=== PATIENT | male | born 1960 | race Caucasian/White ===

== ENCOUNTER 2017-08-27 08:44 | Inpatient (IN) ==
[2017-08-27] MEDS ORDERED: Ondansetron 4 MG/2 ML VIAL IVP ONE (08:54)
[2017-08-27] MEDS ORDERED: Aspirin 81 MG TAB.CHEW PO ONE (08:54)
[2017-08-27] MEDS ORDERED: *HR* Ticagrelor 90 MG TABLET PO ONE (08:54)
[2017-08-27] MEDS ORDERED: 0.9 % Sodium Chloride 1,000 ML IVC ONE (08:54)
[2017-08-27] MEDS ORDERED: Nitroglycerin 0.4 MG TAB.SUBL SL ONE (08:55)
[2017-08-27] MEDS ORDERED: Aspirin 81 MG TAB.CHEW ONE (08:55)
--- NOTE | 2017-08-27 09:07 | Emergency Department Note ---
Disposition Clinical Impression: NSTEMI (non-ST elevated myocardial infarction) Disposition: Admitted As Inpatient Chest Pain HPI - General Stated Complaint: CP Time Seen by Provider: 08/27/17 08:54 Source: patient Mode of arrival: private vehicle Limitations: no limitations Vital Signs Reviewed: Yes Nursing Notes Reviewed: Yes - History of Present Illness Pt complaint: chest pain Onset (ago): Just [facility] Duration: constant Onset: during rest Pain Location: left chest, other (left neck) Severity: severe Severity scale (1-10): 9 Quality: sharp Pain Radiation: neck Improves with: nothing Worsens with: nothing Associated symptoms: Reports: sense of impending doom. Denies: nausea, vomiting , diaphoresis, dyspnea, syncope, fever, cough Treatments prior to arrival chest pain: none - Related Data Home Medications Medication Instructions Recorded Confirmed Meloxicam [Mobic] 15 mg PO DAILY 08/27/17 08/27/17 Allergies Allergy/AdvReac Type Severity Reaction Status Date / Time No Known Allergies Allergy Verified 08/27/17 10:19 All systems ED: reviewed and negative except as stated. Review of Systems: As Per HPI Constitutional: Denies: fever, chills, weakness Eyes: Denies: vision change ENT ED: Denies: congestion Cardiovascular: Reports: as per HPI, chest pain. Denies: palpitations, dyspnea on exertion, orthopnea, edema, syncope Respiratory: Denies: cough, dyspnea, wheezes, hemoptysis, stridor, sputum production Gastrointestinal: Denies: abdominal pain, nausea, vomiting, diarrhea Musculoskeletal: Denies: back pain, joint swelling Neurological: Denies: weakness, numbness, paresthesias Hematological/Lymphatic: Denies: easy bleeding, easy bruising Chest Pain PMH - Past Medical History Medical history: Reports: other Psychiatric history: Reports: no psych history - Social History Smoking Status: Current every day smoker Alcohol use: Reports: none Drug use: Reports: none Physical Exam - General Limitations: no limitations General appearance: alert, anxious, in distress - Head Head exam: atraumatic, normocephalic, normal inspection - Eye Eye exam: Present: normal appearance, PERRL. Absent: scleral icterus, conjunctival injection, periorbital swelling - ENT ENT exam: mucous membranes moist - Neck Neck exam: Present: normal inspection, full ROM, trachea midline. Absent: tenderness, meningismus - Chest Chest inspection: Present: normal inspection, symmetric chest wall rise. Absent : tenderness - Respiratory Respiratory exam: Present: normal lung sounds bilaterally. Absent: respiratory distress, wheezes, stridor, accessory muscle use - Cardiovascular Cardiovascular exam: Present: regular rate, normal rhythm, normal heart sounds - Abdominal Exam Abdominal exam: Present: soft, Non-Tender. Absent: distention, guarding, rebound, mass - Extremities Exam Extremities exam: Present: normal inspection, full ROM, normal capillary refill. Absent: pedal edema - Back Exam Back exam: Present: normal inspection - Neurological Exam Neurological exam: Present: alert, oriented X3, CN II-XII intact, normal gait - Psychiatric Psychiatric exam: Present: normal affect, normal mood, anxious - Skin Skin exam: Present: warm, dry, intact, normal color Course Course Narrative: Patient presents from home for evaluation of chest pain that began just prior to arrival. He states, "I thought maybe he had just ate something bad, but the pain got worse in my neck, so I thought I should come in to get it checked out. " He denies known history of coronary artery disease, acute OR and has never had a cardiac cath or stress test. His pain began while at rest. He denies any palliative or provocative factors. He denies nausea, vomiting, dizziness, syncope, shortness of breath. Chest pain order set has been entered. A repeat EKG was done while Dr. Paul was examining the patient. Concern is for possible STEMI. Meds have been ordered and the interventionalist has been paged. A copy of the EKG was faxed to the Fill Technician for the interventionalist to review. - Reevaluation(s) Reevaluation #1: Repeat ECG #5 shows no STEMI. NTG drip ordered. CTA ordered. Patient still having pain. Fentanyl ordered. BP improving. Sats still normal. Time: 09:39 Reevaluation #2: Repeat TNI is 0.07. This was one hour after first. (Patient's pain began 30 min [facility]) Dr. Paul spoke with Dr. Carranza again. The interventionalist will take the patient to the r&d lab technician now. Time: 11:00 Reevaluation #3: Patient was about to be transferred to the Fill Technician under the care of Dr. Carranza , when his rate increased to the 160s. Dr. Carranza had the nurse stop the nitroglycerin and he ordered Lopressor. Patient's chest pain returned and is now back to a 10. Once the patient's heart rate stabilizes, he will be taken to the r&d lab technician. Dr. Paul was at bedside as well. Time: 11:24 - Consultations Consultation #1: Interventionalist, was paged. Dr. Carranza called back and spoke with Dr. Paul. They have both reviewed the EKG and feel that he does not currently meet criteria for a STEMI. Dr. Paul is concerned as the patient does appear to be developing reciprocal changes on subsequent EKGs, however, Dr. Carranza does not feel that this patient is having a STEMI. Time: 09:00 Vital Signs Temperature 97.5 F L 08/27/17 08:51 Pulse Rate 89 08/27/17 08:51 Respiratory Rate 24 08/27/17 08:51 Blood Pressure 185/128 08/27/17 08:51 O2 Sat by Pulse Oximetry 99 08/27/17 08:51 Temperature 97.5 F L 08/27/17 08:51 Pulse Rate 83 08/27/17 10:38 Respiratory Rate 10 08/27/17 10:38 Blood Pressure 144/91 08/27/17 10:38 O2 Sat by Pulse Oximetry 98 08/27/17 10:38 Oxygen Delivery Oxygen Delivery Room Air Chest Pain - Medical Records Medical records reviewed: Yes I reviewed the patient's medical records. - Lab Data Lab results reviewed: Yes I reviewed the patient's lab results. Lab results narrative: Laboratory Last Values WBC 13.6 K/mcL (4.3-11.1) H 08/27/17 08:59 RBC 5.49 M/mcL (4.19-5.50) 08/27/17 08:59 Hgb 16.5 g/dL (12.9-16.9) 08/27/17 08:59 Hct 49.3 % (37.5-50.1) 08/27/17 08:59 MCV 89.8 fL (83.0-100.0) 08/27/17 08:59 MCH 30.1 pg (28.0-33.3) 08/27/17 08:59 MCHC 33.5 g/dL (31.6-35.5) 08/27/17 08:59 RDW 12.8 % (11.5-14.5) 08/27/17 08:59 Plt Count 274 K/mcL (140-400) 08/27/17 08:59 MPV 11.0 fL (9.4-12.4) 08/27/17 08:59 Immature Gran % 0.4 % (0-4) 08/27/17 08:59 Seg Neutrophils % 47.1 % 08/27/17 08:59 Lymphocytes % 38.9 % 08/27/17 08:59 Monocytes % 7.5 % 08/27/17 08:59 Eosinophils % 5.3 % 08/27/17 08:59 Basophils % 0.8 % 08/27/17 08:59 Neutrophils # 6.4 K/mcL (1.6-8.9) 08/27/17 08:59 Lymphocytes # 5.3 K/mcL (0.6-4.6) H 08/27/17 08:59 Monocytes # 1.0 K/mcL (0.0-1.3) 08/27/17 08:59 Eosinophils # 0.7 K/mcL (0.0-0.6) H 08/27/17 08:59 Basophils # 0.1 K/mcL (0.0-0.2) 08/27/17 08:59 PT 11.9 Seconds (9.4-12.1) 08/27/17 08:59 INR 1.1 08/27/17 08:59 APTT 29.5 Seconds (26.0-36.0) 08/27/17 08:59 Sodium 139 mEq/L (136-145) 08/27/17 08:59 Potassium 3.9 mEq/L (3.5-4.5) 08/27/17 08:59 Chloride 104 mEq/L (98-109) 08/27/17 08:59 Carbon Dioxide 27 mEq/L (19-29) 08/27/17 08:59 BUN 17 mg/dL (8-26) 08/27/17 08:59 Creatinine 0.92 mg/dL (0.72-1.25) 08/27/17 08:59 Est GFR ( Amer) > 60 (> 60) 08/27/17 08:59 Est GFR (Non-Af Amer) > 60 (> 60) 08/27/17 08:59 BUN/Creatinine Ratio 18 (6-26) 08/27/17 08:59 Glucose 103 mg/dL (70-99) H 08/27/17 08:59 Calculated Osmolality 290 (280-300) 08/27/17 08:59 Calcium 9.7 mg/dL (8.6-10.8) 08/27/17 08:59 Magnesium 2.2 mg/dL (1.6-2.6) 08/27/17 08:59 Total Bilirubin 0.5 mg/dL (0.2-1.2) 08/27/17 08:59 AST 18 Units/L (5-34) 08/27/17 08:59 ALT 44 Units/L (0-55) 08/27/17 08:59 Alkaline Phosphatase 89 Units/L (38-126) 08/27/17 08:59 Troponin I 0.07 ng/mL (0-0.03) H* 08/27/17 09:49 Serum Total Protein 7.3 g/dL (6.0-8.3) 08/27/17 08:59 Albumin 3.7 g/dL (3.5-5.0) 08/27/17 08:59 Globulin 3.6 g/dL (2.4-3.5) H 08/27/17 08:59 Albumin/Globulin Ratio 1.0 (1.1-2.2) L 08/27/17 08:59 Result diagrams: 08/27/17 08:59 08/27/17 08:59 Lab Results 08/27/17 08/27/17 08/27/17 Range/Units 08:59 08:59 08:59 WBC 13.6 H (4.3-11.1) K/mcL RBC 5.49 (4.19-5.50) M/mcL Hgb 16.5 (12.9-16.9) g/dL Hct 49.3 (37.5-50.1) % MCV 89.8 (83.0-100.0) fL MCH 30.1 (28.0-33.3) pg MCHC 33.5 (31.6-35.5) g/dL RDW 12.8 (11.5-14.5) % Plt Count 274 (140-400) K/mcL MPV 11.0 (9.4-12.4) fL Immature Gran % 0.4 (0-4) % Seg Neutrophils % 47.1 % Lymphocytes % 38.9 % Monocytes % 7.5 % Eosinophils % 5.3 % Basophils % 0.8 % Neutrophils # 6.4 (1.6-8.9) K/mcL Lymphocytes # 5.3 H (0.6-4.6) K/mcL Monocytes # 1.0 (0.0-1.3) K/mcL Eosinophils # 0.7 H (0.0-0.6) K/mcL Basophils # 0.1 (0.0-0.2) K/mcL PT 11.9 (9.4-12.1) Seconds INR 1.1 APTT 29.5 (26.0-36.0) Seconds Sodium 139 (136-145) mEq/L Potassium 3.9 (3.5-4.5) mEq/L Chloride 104 (98-109) mEq/L Carbon Dioxide 27 (19-29) mEq/L BUN 17 (8-26) mg/dL Creatinine 0.92 (0.72-1.25) mg/dL Est GFR ( Amer) > 60 (> 60) Est GFR (Non-Af Amer) > 60 (> 60) BUN/Creatinine Ratio 18 (6-26) Glucose 103 H (70-99) mg/dL Calculated Osmolality 290 (280-300) Calcium 9.7 (8.6-10.8) mg/dL Magnesium 2.2 (1.6-2.6) mg/dL Total Bilirubin 0.5 (0.2-1.2) mg/dL AST 18 (5-34) Units/L ALT 44 (0-55) Units/L Alkaline Phosphatase 89 (38-126) Units/L Troponin I (0-0.03) ng/mL Serum Total Protein 7.3 (6.0-8.3) g/dL Albumin 3.7 (3.5-5.0) g/dL Globulin 3.6 H (2.4-3.5) g/dL Albumin/Globulin Ratio 1.0 L (1.1-2.2) 08/27/17 08/27/17 Range/Units 08:59 09:49 WBC (4.3-11.1) K/mcL RBC (4.19-5.50) M/mcL Hgb (12.9-16.9) g/dL Hct (37.5-50.1) % MCV (83.0-100.0) fL MCH (28.0-33.3) pg MCHC (31.6-35.5) g/dL RDW (11.5-14.5) % Plt Count (140-400) K/mcL MPV (9.4-12.4) fL Immature Gran % (0-4) % Seg Neutrophils % % Lymphocytes % % Monocytes % % Eosinophils % % Basophils % % Neutrophils # (1.6-8.9) K/mcL Lymphocytes # (0.6-4.6) K/mcL Monocytes # (0.0-1.3) K/mcL Eosinophils # (0.0-0.6) K/mcL Basophils # (0.0-0.2) K/mcL PT (9.4-12.1) Seconds INR APTT (26.0-36.0) Seconds Sodium (136-145) mEq/L Potassium (3.5-4.5) mEq/L Chloride (98-109) mEq/L Carbon Dioxide (19-29) mEq/L BUN (8-26) mg/dL Creatinine (0.72-1.25) mg/dL Est GFR ( Amer) (> 60) Est GFR (Non-Af Amer) (> 60) BUN/Creatinine Ratio (6-26) Glucose (70-99) mg/dL Calculated Osmolality (280-300) Calcium (8.6-10.8) mg/dL Magnesium (1.6-2.6) mg/dL Total Bilirubin (0.2-1.2) mg/dL AST (5-34) Units/L ALT (0-55) Units/L Alkaline Phosphatase (38-126) Units/L Troponin I 0.02 0.07 H* (0-0.03) ng/mL Serum Total Protein (6.0-8.3) g/dL Albumin (3.5-5.0) g/dL Globulin (2.4-3.5) g/dL Albumin/Globulin Ratio (1.1-2.2) - Radiology Data Radiology results reviewed: Yes I reviewed the patient's radiology results. Chest X-Ray 08/27/17 08:55 IMPRESSION: No acute process. D/ / Mati Espinoza MD / Mati Espinoza MD Interpreting Provider: Mati Espinoza MD Chest CTA 08/27/17 09:38 IMPRESSION: No evidence of pulmonary embolism or acute pulmonary abnormality. D/ / Fredis Salguero MD / Fredis Salguero MD Interpreting Provider: Fredis Salguero MD - EKG Data EKG attestation: Yes I reviewed and interpreted this EKG. EKG shows normal: sinus rhythm Rate: normal Rhythm: NSR ST segment elevation in: v1, v2, v3 QRS morphology: J-point elevation (I do not) When compared to previous EKG there are: no significant changes Interpretation: unchanged when compared to prior tracing (date) Heart Score - Score History: Highly Suspicious EKG: Non Specific repolarisation Disturbance Age: 45-65 Risk Factors: Equal/Greater than 3 risk factor or history of atherosclerotic disease Troponin: 1-3x normal limit HEART Score Total: 7 Critical Care Time Critical Care Time: Yes Total Critical Care Time: 35 (Exclusive of separately billable procedures) Attestation: Patient arrived with an acute onset of chest pain. He appeared to be in significant pain and distress. He was hypertensive. Initial EKG shows [address] elevation in V1 and V2. Presentation was concerning for STEMI. Serial EKGs were done and patient was started on a nitroglycerin and heparin drip. He was also given aspirin, Plavix and Brilinta. He received fentanyl, fluids and Zofran as well. Patient's initial troponin is 0.02 and repeat troponin drawn one hour post arrival is elevated at 0.07. Patient will be going to the Fill Technician as he is having continued pain and has an elevated troponin
[2017-08-27 09:12] LABS: Basophils # 0.1 K/mcL (0.0-0.2); Basophils % 0.8 %; Eosinophils # 0.7 K/mcL (0.0-0.6); Eosinophils % 5.3 %; Hematocrit 49.3 % (37.5-50.1); Hemoglobin 16.5 g/dL (12.9-16.9); Immature Granulocytes % 0.4 % (0-4); Lymphocytes # 5.3 K/mcL (0.6-4.6); Lymphocytes % 38.9 %; Mean Corpuscular HGB Conc 33.5 g/dL (31.6-35.5); Mean Corpuscular Hemoglobin 30.1 pg (28.0-33.3); Mean Corpuscular Volume 89.8 fL (83.0-100.0); Monocytes % 7.5 %; Neutrophils # 6.4 K/mcL (1.6-8.9); Platelet Count 274 K/mcL (140-400); Red Blood Count 5.49 M/mcL (4.19-5.50); Red Cell Distribution Width 12.8 % (11.5-14.5); Segmented Neutrophils % 47.1 %
[2017-08-27] MEDS ORDERED: *HR* Heparin 5,000 UNIT/ML VIAL IVP PRN ×2 (09:18)
[2017-08-27] MEDS ORDERED: *HR* Heparin 5,000 UNIT/ML VIAL IVP ONE (09:18)
[2017-08-27] MEDS ORDERED: Nitroglycerin 25 MG/250 ML INFUS..BTL IVC ONE (09:19)
[2017-08-27 09:22] LABS: INR 1.1; Prothrombin Time 11.9 Seconds (9.4-12.1)
[2017-08-27 09:24] LABS: Alanine Aminotransferase 44 Units/L (0-55); Albumin 3.7 g/dL (3.5-5.0); Alkaline Phosphatase 89 Units/L (38-126); Aspartate Amino Transferase 18 Units/L (5-34); BUN/Creatinine Ratio 18 (6-26); Bilirubin,Total 0.5 mg/dL (0.2-1.2); Blood Urea Nitrogen 17 mg/dL (8-26); Calcium 9.7 mg/dL (8.6-10.8); Carbon Dioxide 27 mEq/L (19-29); Chloride 104 mEq/L (98-109); Globulin 3.6 g/dL (2.4-3.5); Glucose 103 mg/dL (70-99); Magnesium 2.2 mg/dL (1.6-2.6); Osmolality,Calculated 290 (280-300); Potassium 3.9 mEq/L (3.5-4.5); Sodium 139 mEq/L (136-145); Total Protein 7.3 g/dL (6.0-8.3); eGFR For African Americans > 60 (> 60); eGFR For Non-African Americans > 60 (> 60)
[2017-08-27 09:25] LABS: Activated Partial Thrombo Time 29.5 Seconds (26.0-36.0)
[2017-08-27] MEDS ORDERED: Heparin 25,000 UNIT/500 ML D5W 25,000 UNIT/500 ML MLS IVC SCH (09:30)
[2017-08-27] MEDS ORDERED: Nitroglycerin 25 MG/250 ML INFUS..BTL IVC SCH (09:30)
[2017-08-27] MEDS ORDERED: *HR* FentaNYL (PF) 100 MCG/2 ML VIAL IVP ONE (09:41)
--- NOTE | 2017-08-27 10:25 | Internal Med History&Physical ---
Date of Encounter: 08/27/17 Time of Encounter: 10:21 Assessment and Plan (1) NSTEMI (non-ST elevated myocardial infarction) Current visit: Yes Status: Acute 57/male admitted with chest pain. Noted that a rising troponin. Evaluated by cardiology. Patient is scheduled for cardiac cath. We will follow the recommendations from cardiology. (2) Back pain Current visit: Yes Status: Acute Patient has ongoing chronic back pain. We will give appropriate pain medication to manage his back pain. Qualifiers: Back pain location: back pain in unspecified location Chronicity: chronic Back pain laterality: unspecified Qualified Code(s): M54.9 - Dorsalgia, unspecified; G89.29 - Other chronic pain; G89.29 - Other chronic pain (3) DVT prophylaxis Current visit: Yes Status: Acute The as per cardiology Internal Medicine - H&P: HPI Chief complaint: Chest pain Admitted From: Emergency Dept Plans for Post Hospital Care: Home History of present illness: PCP: Dr. Ryan JOHNSON: Ms. Hung: [phone] Brief past medical history: Patient has a persistent back pain, he was seen by interventional pain management. No other medical issues. History of present medical illness: Patient started complaining of excruciating left-sided precordial, radiating pain to left arm/left shoulder, sharp in nature associated with exertion and relieved by rest. The patient thinks that this is the worst pain of his life. Patient has persistent ongoing pain for which he came to this hospital for further evaluation. Patient denies shortness of breath, abdominal pain, nausea, vomiting, dizziness and diarrhea. Workup in the emergency room: Patient was evaluated in the emergency room. Basic labs were drawn. EKG was done. EKG was suggestive of a ST elevation myocardial infarction. [employer] was paged. Cardiology reviewed EKG and cardiology does not think this is a ST elevation myocardial infarction. Reason for admission: Chest pain to rule out ACS. Heart score:2 Family history noncontributory Past Med Surg Social Fam HX - Past Medical History Medical history: other Psychiatric history: no psych history - Social History Smoking Status: Current every day smoker Smokeless Tobacco Status: No Alcohol use: none Drug use: none - Family History Mother Age: 83 Living Status: Still Living Hx Family Musculoskeletal Disorders: Yes Father Age: 62 Living Status: Cause of : cancer Hx Family Cancer: Yes Internal Medicine - H&P: Meds Meloxicam [Mobic] 15 mg PO DAILY 08/27/17 [History] 3 Allergy/AdvReac Type Severity Reaction Status Date / Time No Known Allergies Allergy Verified 08/27/17 10:19 All Systems PM: A 10-system review of systems was performed and is negative for pertinent findings except as documented above in the HPI. - Constitutional Constitutional: no chills, no fever(s), no night sweats - EENT Eyes: no change in vision, no discharge, no pain, no photophobia Ears: no ear discharge, no ear pain, no tinnitus Nose, mouth and throat: no dysphagia, no nasal discharge, no neck pain, no sore throat - Cardiovascular Cardiovascular ROS IM: as per HPI, chest pain, lightheadedness, palpitations, no diaphoresis, no dyspnea, no syncope - Respiratory Respiratory: no cough, no dyspnea, no wheezing, no excessive phlegm production - Gastrointestinal Gastrointestinal: no abdominal pain, no diarrhea, no hematemesis, no hematochezia, no melena, no nausea, no vomiting - Musculoskeletal Musculoskeletal ROS IM: no numbness, no tingling - Integumentary Integumentary IM: no rash, no unusual bruising - Neurological Neurological ROS: no confusion, no convulsions, no focal weakness, no numbness, no tingling, no tremor(s) - Hematologic/Lymphatic Hematologic/Lymphatic: no easy bruising - Constitutional Vitals: Temp Pulse Resp BP Pulse Ox 97.5 F L 81 9 162/104 97 08/27/17 08:51 08/27/17 10:09 08/27/17 10:09 08/27/17 10:09 08/27/17 10:09 General appearance: Present: A&O X 3, pleasant, no acute distress, answers questions appropriately - Head Head exam: Present: atraumatic, normocephalic - Eye Eye exam: Present: PERRL, conjuntiva pink, sclera anicteric Pupils: Present: PERRL - Neck Neck exam general surgery: Present: supple, trachea midline. Absent: lymphadenopathy - Respiratory Respiratory exam: Present: CTAB. Absent: accessory muscle use, rales, rhonchi, wheezes - Cardiovascular Cardiovascular exam: Present: RRR, +S1, +S2. Absent: diastolic murmur, gallop, rubs, systolic murmur - GI/Abdominal GI/Abdominal exam: Present: normal bowel sounds, soft, no peritoneal signs. Absent: distended, tenderness - Extremities Exam Extremities exam: Present: warm, radial pulses palpable and symmetrical. Absent : calf tenderness, cyanotic, pedal edema - Neurological Exam Neurological exam: Present: CN II-XII intact, oriented X3, no focal deficits. Absent: pronater drift, facial droop, speech deficit - Skin Skin exam: Present: dry, intact Internal Med - H&P Results - Labs CBC & Chem 7: 08/27/17 08:59 08/27/17 08:59 Labs: Short CBC 08/27/17 Range/Units 08:59 WBC 13.6 H (4.3-11.1) K/mcL Hgb 16.5 (12.9-16.9) g/dL Hct 49.3 (37.5-50.1) % Plt Count 274 (140-400) K/mcL Neutrophils # 6.4 (1.6-8.9) K/mcL BMP 08/27/17 08:59 Sodium 139 Potassium 3.9 Chloride 104 Carbon Dioxide 27 BUN 17 Creatinine 0.92 Glucose 103 H Calcium 9.7 Cardiac Enzymes 08/27/17 08/27/17 Range/Units 08:59 09:49 Troponin I 0.02 0.07 H* (0-0.03) ng/mL Liver Function 08/27/17 Range/Units 08:59 Total Bilirubin 0.5 (0.2-1.2) mg/dL AST 18 (5-34) Units/L ALT 44 (0-55) Units/L Alkaline Phosphatase 89 (38-126) Units/L Albumin 3.7 (3.5-5.0) g/dL - Impressions ITS Impressions Chest X-Ray 08/27/17 08:55 IMPRESSION: No acute process. D/ / Mati Espinoza MD / Mati Espinoza MD Interpreting Provider: Mati Espinoza MD
[2017-08-27] MEDS ORDERED: Naloxone 0.4 MG/ML INJ IVP PRN (10:29)
[2017-08-27] MEDS ORDERED: *HR* Morphine 2 MG/ML SYRINGE IVP PRN (10:29)
[2017-08-27] MEDS ORDERED: *HR* Metoprolol 5 MG/5 ML VIAL IVP ONE ×4 (11:16→11:31)
[2017-08-27] MEDS ORDERED: 0.9 % Sodium Chloride 1,000 ML ONE ×3 (11:17→12:14)
[2017-08-27] MEDS ORDERED: *HR* Midazolam HCl 2 MG/2 ML VIAL IVP ONE (11:30)
--- NOTE | 2017-08-27 11:47 | Cardiology Consult Note ---
<Carolynn Matos - Last Filed: 08/27/17 11:44> Date of Encounter: 08/27/17 Time of Encounter: 11:00 Assessment and Plan (1) Chest pain Current Visit: Yes Status: Acute Per cardiology: -Seen and evalauted in ER for continued chest pain on nitro 60mcg/min drip. -Admits to current chest pain 8/10. -ECG with diffuse ST changes. -troponin initially negative, repeat 0.07. On heparin drip. -Plan for LHC. Risks versus benefits of LHC explained to patient and family. Patient states understanding and agreeable to proceed. -Will consult cardiac rehab. -WIll order TTE. Qualifiers: Chest pain type: other chest pain Qualified Code(s): R07.89 - Other chest pain; R07.8 - Other chest pain (2) SVT (supraventricular tachycardia) Current Visit: Yes Status: Acute Per cardiology: -While at bedside in ER, patient went into SVT, HR 150-160s. -Patient was given IV lopressor x2 doses, HR currently 110-120s. -On beta halley. -Plan for LHC. -Will continue to monitor. Discussion w patient/family: The assessment and plan as outlined above was discussed with the patient and/or family members who expressed understanding and agreement. All questions were answered. Thank you for involving us in the care of your patient. Please call with any questions. Discussed and reviewed with . History of Present Illness Consult date: 08/27/17 Requesting physician: Mickey Reyes Consult reason: chest pain Chief complaint: chest pain History of present illness: Mr. Callaway is a 57 year old male with a relevant past medical history of smoking 0.5 ppd for many years, and spinal stenosis. Denies previous cardiac history. Denies family history of CAD. Patient presents to [facility] with complaints of chest pain that radiated to bilateral neck and jaw. Patient states pain started at rest. Patient states current 8/10 pain, currently on nitro drip at 60mcg/min. At time of assessment, patient went into SVT and states he felt fluttering in heart. Patient states this is different then what happened at home. Past Med Surg Social Fam HX - Past Medical History Attestation: Yes The following information was validated with the patient. Source: patient, old records reviewed Medical history: other Psychiatric history: no psych history - Social History Smoking Status: Current every day smoker Smokeless Tobacco Status: No Alcohol use: none Drug use: none Medications and Allergies Meloxicam [Mobic] 15 mg PO DAILY 08/27/17 [History] 3 Allergy/AdvReac Type Severity Reaction Status Date / Time No Known Allergies Allergy Verified 08/27/17 10:19 All Systems Review: A 10-system review of systems was performed and is negative for pertinent findings except as documented above in the HPI. - Cardiovascular Cardiovascular: as per HPI, chest pain at rest, palpitations Physical Examination Vital Signs, Last 4 Hours Pulse Resp BP Pulse Ox 08/27/17 11:34 125 16 132/110 99 General: Conversant, No Apparent Distress HEENT: Atraumatic, Normocephaly, Mucus Membranes Moist Neck: No JVD, Normal carotid pulses Cardiac: Reg Rate and Rhythm, Normal S1 and S2, No Murmur Lungs: Normal Breath Sounds, No Wheeze, Rales, Rhonchi Neuro: Alert and responsive, No focal deficits noted Abdomen: Soft, Non-Tender Skin: No rashes noted on visualized skin Musculoskeletal: No Chest Wall Tenderness Extremities: No Clubbing, No Cyanosis, No Edema, Normal Pulses Results 08/27/17 08:59 08/27/17 08:59 Impressions Chest X-Ray 08/27/17 08:55 IMPRESSION: No acute process. D/ / Mati Espinoza MD / Mati Espinoza MD Interpreting Provider: Mati Espinoza MD Chest CTA 08/27/17 09:38 IMPRESSION: No evidence of pulmonary embolism or acute pulmonary abnormality. D/ / Fredis Salguero MD / Fredis Salguero MD Interpreting Provider: Fredis Salguero MD Active Medications Aspirin (Aspirin Ec) 81 mg PO DAILY NINFA Stop: 02/26/18 10:46 Atorvastatin Calcium (Lipitor) 40 mg PO HS NINFA Stop: 02/26/18 21:01 Heparin Sodium (Porcine) (Heparin) 4,000 unit IVP Q6HR PRN PRN Reason: SEE COMMENTS Stop: 02/26/18 09:19 Heparin Sodium (Porcine) (Heparin) 2,000 unit IVP Q6H PRN PRN Reason: SEE COMMENTS Stop: 02/26/18 09:19 Heparin Sodium/Dextrose (Heparin 25,000 Unit/500 Ml D5w) 25,000 unit in 500 mls @ 19.595 mls/hr IVC .Q24H NINFA; 12 UNIT/KG/HR PRN Reason: Protocol Stop: 02/26/18 09:31 Last Admin: 08/27/17 09:23 Dose: 12 unit/kg/hr, 19.595 mls/hr Nitroglycerin (Nitroglycerin Premix 25 Mg/250 Ml) 25 mg in 250 mls @ 3 mls/hr IVC .Q24H NINFA PRN Reason: 5 MCG/MIN Stop: 02/26/18 09:31 Last Infusion: 08/27/17 11:23 Dose: 0 mcg/min, 0 mls/hr Meloxicam (Mobic) 15 mg PO DAILY [facility] Stop: 02/26/18 10:46 Metoprolol Tartrate (Lopressor) 12.5 mg PO BID [facility] Stop: 02/26/18 10:46 Morphine Sulfate (Morphine Sulfate) 2 mg IVP Q4HR PRN PRN Reason: Severe Pain (7-10) Stop: 02/26/18 10:30 Naloxone HCl (Narcan) 0.4 mg IVP Q2MIN PRN PRN Reason: Opioid Reversal Stop: 02/26/18 10:30 Laboratory Tests 08/27/17 08/27/17 08/27/17 08:59 08:59 08:59 WBC 13.6 H Hgb 16.5 Potassium 3.9 Creatinine 0.92 Magnesium 2.2 Troponin I 0.02 08/27/17 09:49 WBC Hgb Potassium Creatinine Magnesium Troponin I 0.07 H* - Imaging and Cardiology Chest Xray: report reviewed Cardiac cath: pending - EKG Interpretation EKG results cardiology: personally reviewed (ECG with SR, non-specific ST changes. ECG done while at bedside with SVT.) Consult Discharge Plan - Plan Referrals: Roberto Davis MD [Primary Care Provider] - <Frederick Carranza - Last Filed: 08/27/17 13:12> Date of Encounter: 08/27/17 - Attending Attestation I have personally performed a face to face evaluation on this patient. I have reviewed and agree with the care plan. History and Exam by me shows: IMp/plan: 1. Chest pain: atypical, ongoing despite medical tx, initially slight response to sl ntg, then ntg drip, recurrent, worse after run of SVT. Long conversation with pt and family at bedside, EKG and troponins are suggestive but not definitive for ACS, however in light of chest pain, risk benefit ratio favors proceeding with emergent LHC, poss PCI if indicated. He has been loaded with ASA and dual antiplatelet tx, has received both Plaviix and Brillinta, on heparin, IV ntg dc'd due to hypotension. Plan emergrent LHC/poss. 2. SVT - heart rates up to 170, started on IV metoprolol with control of heart rate response, improvement in heart rate response. b 3, Elevated troponin, up slightly in last two hours, highly likely has some degree of myocardial necrosis, will proceed with LHC to define anatomy, PCI if indciated. 4 Tobacco abuse, discussed risks and benefites, pt unable to quit today, unable to pick a stop date but will suspend tobaco pauline-operatively Assessment and Plan Discussion w patient/family: The assessment and plan as outlined above was discussed with the patient and/or family members who expressed understanding and agreement. All questions were answered. Thank you for involving us in the care of your patient. Please call with any questions. History of Present Illness History of present illness: Mr. Callaway is a 57 year old male All Systems Review: A 10-system review of systems was performed and is negative for pertinent findings except as documented above in the HPI. Physical Examination Vital Signs, Last 4 Hours Pulse Resp BP Pulse Ox 08/27/17 11:51 131 14 123/80 98 08/27/17 11:34 125 16 132/110 99 Results 08/27/17 08:59 08/27/17 08:59
[2017-08-27] MEDS ORDERED: Nitroglycerin 1,000 MCG/10 ML VIAL IV ONE (11:50)
[2017-08-27] MEDS ORDERED: *HR* Heparin 10,000 UNIT/10 ML VIAL ONE (11:50)
[2017-08-27] MEDS ORDERED: Heparin 1,000 UNITS/500 mL NS 500 ML ONE (11:50)
--- NOTE | 2017-08-27 11:50 | Pre-Sedation Evaluation ---
Pre-sedation evaluation - Pre-sedation checklist Date of procedure: 08/27/17 Procedure: [facility] Recent Vitals: Last Vital Signs Temp 97.5 F L 08/27/17 08:51 Pulse 125 08/27/17 11:34 Resp 16 08/27/17 11:34 BP 132/110 08/27/17 11:34 Pulse Ox 99 08/27/17 11:34 H&P (including ROS) documented in medical record: Yes Previous reaction to sedatives/anesthetics: No Dietary Status: NPO after Midnight Airway Assessment: Patient can open mouth completely, TMJ function normal, Micrognathia (under-bite, receding chin) absent, Neck with adequate range of motion Dentition: No loose teeth or bridges Possible difficult airway: No ASA Classification *see protocol: CLASS II-Mild systemic disease Plan of Care: Pt appropriate candidate for procedure/moderate/conscious sedation , Risks/benefits of procedure/sedation discussed w/ patient/family
[2017-08-27] MEDS ORDERED: *HR* FentaNYL (PF) 100 MCG/2 ML VIAL ONE (12:17)
[2017-08-27] MEDS ORDERED: *HR* Midazolam HCl 2 MG/2 ML VIAL ONE (12:17)
[2017-08-27] MEDS ORDERED: Nitroglycerin 0.4 MG TAB.SUBL SL PRN (12:59)
--- NOTE | 2017-08-27 13:03 | Invasive Diagnostic Lab Proc ---
Name: Tom Callaway Date of Study: 08/27/2017 Date: 1960 Ht: 68.9in Medical Record#: [id number] Age: 57 Wt: 178.57lb Gender: Male BSA: 1.97 Order #: [id number] BMI: 26.45 Physicians Procedure Physician: Kyra Bruner MD, [facility] Referring MD: Referring MD: Staff Name Position Time In Rubi Devries RN Circular Head Saw Operator 12:08 PM Melba Lazo RT (R) Monitor 12:08 PM Kaykay Doshi RT Scrub 12:08 PM Princess Cope RT (R) Scrub 12:12 PM Jim Barth RT (R) Monitor 12:16 PM Marian Oleary RN Circular Head Saw Operator 12:16 PM Marian Oleary RN Circular Head Saw Operator 12:19 PM Indications Indication Non-Stemi Procedures Performed Procedure L HRT ARTERY/VENTRICLE ANGIO PRQ CARD DIANE STENT W/ANGIO 1 VSL Pre-Procedure Checklist Informed consent is complete signed and on chart. H&P is on chart. ID band is on and ID verified with patient. Patient NPO for procedure The procedure was described for the patient and questions were answered. Blood Pressure: 82/46 ECG is on chart. Rhythm: Sinus Tachycardia Plan of Care Patient will tolerate the procedure without complications. Adequate level of comfort will be maintained. Hemodynamics will remain stable Patient will recover from procedure without complications. Respiratory function will be maintained. Cardiac rhythm will remain stable. Patient temperature will be maintained. Patient and/or family have verbalized understanding of the procedure. Patient Education Intravenous Access Time IV Size Location DC'd Fluid/Drip Rate Units RN 12:20 PM 18g 1 1/4" Patent On Arrival Lt Antecubital 0.9NaCl 25 Rubi Devries RN 12:21 PM 18g 1 1/4" Peripheral-Lock On Arrival Rt Arm Allergies No Known Allergies Vital Signs Time BP (mmHg) HR (bpm) O2 Sat. RR (bpm) LOC 12:09 PM 82 / 46 128 96 % 20 5 = Fully awake and oriented or at pre-proc level 12:12 PM 82 / 68 136 98 % 12:15 PM 82 / 46 135 97 % 18 12:17 PM 141 / 106 131 96 % 9 12:22 PM 146 / 103 131 98 % 19 12:27 PM 142 / 99 77 95 % 22 12:32 PM 128 / 90 69 98 % 11 12:37 PM 125 / 76 72 96 % 16 12:42 PM 125 / 86 74 96 % 10 Procedural Medications Time Medication Dose Units Method Given By 12:09 PM Oxygen 2 L/min nasal cannula Rubi Devries RN 12:18 PM Versed 2 mg Intravenous Rubi Devries RN 12:18 PM Fentanyl 50 mcg Intravenous Rubi Devries RN 12:19 PM Oxygen 2 L/min nasal cannula Marian Oleary RN 12:21 PM Lidocaine 2% 20 ml Subcutaneous Kyra Bruner MD, FACC 12:26 PM Angiomax 0.75mg/kg bolus: 12 ml Intravenous Marian Oleary RN 12:27 PM Benadryl 25 mg Intravenous Marian Oleary RN 12:27 PM Angiomax 1.75mg/kg/hr: 28 ml Intravenous Marian Oleary RN 12:32 PM Nitroglycerin 200 mcg Intracoronary Kyra Bruner MD, FACC 12:36 PM Nitroglycerin 200 mcg Intracoronary Kyra Bruner MD, FACC 12:41 PM Reopro Bolus: 10.1 ml Intravenous Marian Oleary RN ASA Classification: CLASS III- Severe systemic disease (i.e. prior AMI, diabetes with vascular complications, morbid obesity) Dontrell Score Preprocedure Postprocedure Activity 2- Moves 4 extremities sustained head lift Activity 2- Moves 4 extremities sustained head lift Circulation 2- SBP +/= 20 points of pre-anesthetic level Circulation 2- SBP +/= 20 points of pre-anesthetic level Consciousness 2- Awake and alert oriented x 3 Consciousness 2- Awake and alert oriented x 3 O2 Saturation 2- Able to maintain O2 satruation of 92% on room air O2 Saturation 2- Able to maintain O2 satruation of 92% on room air Respiratory 2- Able to deep breathe and cough well Respiratory 2- Able to deep breathe and cough well Total Score 10 Total Score 10 Contrast Agent: Isovue Diagnostic Contrast: 142 ml Total Contrast: 142 ml Fluoro Dose: 341 mGy Procedure Log Time Note Enter By 11:51 AM CathStat 12:07 PM Pt arrived to wheelabrator operator 2 at 12:07 tsites 12:08 PM Princess Cope RT (R) Position: Scrub Time in: 12:08 tsites 12:08 PM Physician arrived 12:08 tsites 12:08 PM Meet and greet completed tsites 12:08 PM Sign in performed according to hospital policy. tsites 12:08 PM Procedure start 12:08 tsites 12:08 PM Rubi Devries RN Position: Circular Head Saw Operator Time in: 12:08 tsites 12:08 PM Patient charges- Angio tray pack, Navilyst 3mm J, Pulse Oximetry and ACIST tubing and transducer tsites 12:08 PM Case Delayed No tsites 12:09 PM ASA Class CLASS III- Severe systemic disease (i.e. prior AMI, diabetes with vascular complications, morbid obesity) [email or web address] 12:09 PM Hair removed from procedure site in emergency department using clippers. Bilateral groin prepped with Chloraprep by Kaykay Doshi RT, safety strap applied then patient was draped. Skin intact. tsites 12:09 PM Time: 12:09 Oxygen on at 2 L/min per nasal cannula by Rubi Devries RN tsites 12:09 PM Time: 12:09 Patient comfortable and pain free: Yes tsites 12:09 PM Time: 12:09LOC: 5 = Fully awake and oriented or at pre-proc level tsites 12:09 PM Clinical Presentation: Non-STEMI tsites 12:10 PM Vitals capture started with the following parameters, Patient=Adult, Interval=5 min, Initial Ktizdlou=684 mmHg, Deflation Rate=5 mmHg, Cuff placed on Right Arm 12:11 PM Vitals capture stopped. 12:11 PM Vitals capture started with the following parameters, Patient=Adult, Interval=5 min, Initial Xhdkriab=287 mmHg, Deflation Rate=5 mmHg, Cuff placed on Right Arm 12:12 PM PV=380 bpm, NIBP=82/68 mmhg, SpO2=98.0 % 12:14 PM Recorded ECG: MJ=516 Condition=Condition 1 12:14 PM NIBP STAT measurement started. 12:15 PM JB=396 bpm, NIBP=82/46 mmhg, SpO2=97.0 %, Resp=18 B/min 12:16 PM Jim Barth RT (R) Position: Monitor Time in: 12:16 tsites 12:16 PM Marian Oleary RN Position: Circular Head Saw Operator Time in: 12:16 tsites 12:17 PM XP=017 bpm, FMWR=250/106 mmhg, SpO2=96.0 %, Resp=9 B/min 12:18 PM Pressure channel 1 zeroed. 12:18 PM Time: 12:18 Versed 2 mg Intravenous Given by Rubi Devries RN [facility] 12:18 PM Time: 12:18 Fentanyl 50 mcg Intravenous Given by Rubi Devries RN [place] [id number] 12:19 PM Time out performed according to hospital policy [facility] 12: PM Time: : Oxygen on at 2 L/min per nasal cannula by Marian Oleary RN [facility] 12: PM Marian Oleary RN Position: Circular Head Saw Operator Time in: 12: 12: PM Time: : 20 ml Lidocaine 2% to right groin Subcutaneous Given by Kyra Bruner MD, [facility] 12: PM Access obtained by percutaneous puncture. 5Fr 10cm Terumo Fortescue sheath placed in right Femoral artery. [id number] [facility] 12: PM 0.035 145cm Navilyst 3mmJ wire [id number] [facility] 12: PM 5Fr FL 4 catheter inserted over the wire [facility] 12:22 PM LCA angiography performed in multiple views. 12:22 PM Recorded Pressure: Ao, VW=686, Condition=Condition 1 (Aorta) Ao 157/76/117 12:22 PM LV=717 bpm, JHHT=066/103 mmhg, SpO2=98.0 %, Resp=19 B/min 12:23 PM Catheter removed 12:23 PM 5Fr FR 4 catheter inserted over the wire [facility] 12:24 PM RCA angiography performed in multiple views. 12:24 PM Coronary Dominance: right 12:25 PM Catheter removed [facility] 12:25 PM Physician reviewing films [facility] 12: PM Lesion found in Proximal LAD. Pre Stenosis: 100 Pre MILAGRO Flow: [email or web address] 12: PM Proximal Left Anterior Descending Coronary Artery with 100% stenosis. If graft is supplying this territory, 0 % stenosis. ilson 12: PM Sheath exchanged for a 6 Fr 11 cm Cordis Tamara sheath [id number] ilson 12: PM Inflation device was opened. 12: PM Time: 12:26 Angiomax 0.75mg/kg bolus: 12 ml Intravenous Given by Marian Oleary RN Roth pump 12:27 PM 6Fr XB LAD 3.5 [place] Bright-Tip guide catheter was used to cannulate the PCI vessel successfully. reused? No 12:27 PM Time: 12: Benadryl 25 mg Intravenous Given by Marian Oleary RN 12: PM Time: 12: Angiomax 1.75mg/kg/hr: 28 ml Intravenous Given by Marian Oleary RN Roth pump 12:27 PM HR=77 bpm, RKSO=958/99 mmhg, SpO2=95.0 %, Resp=22 B/min 12:28 PM .014 Prowater 180cm guide wire across target lesion- successful. reused? No 12:28 PM Recorded Pressure: Ao, HR=74, Condition=Condition 1 (Aorta) Ao 150/99/122 12:29 PM 2.5 mm x 15 mm Emerge Monorail balloon across target lesion- successful. reused? No 12:31 PM Balloon inflated @ 8 deyanira for 30 seconds 12:31 PM Balloon catheter removed intact. 12:32 PM HR=69 bpm, HGHG=873/90 mmhg, SpO2=98.0 %, Resp=11 B/min 12:32 PM Time: 12:32 Nitroglycerin 200 mcg Intracoronary Given by Kyra Bruner MD, [facility] 12:34 PM 3.5mm x 24mm Synergy drug-eluting stent across target lesion- successful Lot #[id number] 12:35 PM Stent deployed @ 11 deyanira for 30 seconds 12:36 PM Stent delivery system removed intact. 12:37 PM Time: 12:36 Nitroglycerin 200 mcg Intracoronary Given by Kyra Bruner MD, [facility] 12:37 PM HR=72 bpm, CFKN=521/76 mmhg, SpO2=96.0 %, Resp=16 B/min 12:38 PM Guide wire removed intact. 2 12:38 PM Recorded ECG: HR=72 Condition=Condition 1 12:38 PM Guide catheter removed intact. 12:38 PM 5Fr Pigtail catheter inserted over the wire DNC [email or web address] 12:39 PM Catheter selectively placed in left ventricle [email or web address] 12:39 PM Pressure channel 1 zero failed. 12:39 PM Pressure channel 1 zero failed. 12:39 PM Pressure channel 1 zero failed. 12:39 PM Pressure channel 1 zeroed. 12:40 PM Recorded Pressure: LV, HR=73, Condition=Condition 1 (Left Ventricle) LV 102/12/13 12:40 PM Bolus angiogram of left Ventricle complete: 8 ml/sec for a total of 24 mls [email or web address] 12:40 PM Recorded Pressure: LV, Ao, HR=71, Condition=Condition 1 (Left Ventricle) LV 104/19/26, (Aorta) Ao 99/30/77 12:40 PM Catheter removed [email or web address] 12:40 PM Bolus angiogram of right Femoral complete: 4 ml/sec for a total of 7 mls [email or web address] 12:41 PM Time: 12:41 Reopro Bolus: 10.1 ml Intravenous Given by Marian Oleary RN Roth pump [email or web address] 12:42 PM HR=74 bpm, MVCP=876/86 mmhg, SpO2=96.0 %, Resp=10 B/min 12:43 PM Procedure completed at 12:42 [email or web address] 12:43 PM Sign out completed: Radiation Dose 340.70 mGy Fluoro Time: 4.2 Isovue 370 - 200ml contrast 142 ml given by Kyra Bruner MD, [facility]. Complications: NoneCardiac Rehab Consult needed: YesConfirmed administered medications: Yes [email or web address] 12:44 PM Isovue 370 - 200ml,1 Bottle(s) used. [email or web address] 12:44 PM Sheath left in place to be pulled on floor/holding areaV+Pad [email or web address] 12:44 PM Estimated Blood Loss: minimal [email or web address] 12:45 PM Lesion found in Proximal RCA. Pre Stenosis: 25 Pre MILAGRO Flow: [email or web address] 12:45 PM Lesion found in Proximal RCA. Pre Stenosis: 40 Pre MILAGRO Flow: [email or web address] 12:45 PM Right Coronary, Right Posterior Descending Arteries with Right Posterolateral and Acute Marginal branches with 40 % stenosis. If graft is supplying this area, 0 % stenosis [email or web address] 12:45 PM Lesion found in LMCA. Pre Stenosis: 15 Pre MILAGRO Flow: [email or web address] 12:45 PM Left Main Coronary Artery with 15% stenosis [email or web address] 12:45 PM Lesion found in 1st Marginal. Pre Stenosis: 30 Pre MILAGRO Flow: [email or web address] 12:45 PM Circumflex, Obtuse Marginal, Left Posterior Descending, and Left Posterolateral Coronary Arteries with 30 % stenosis. If graft is supplying this area, 0 % stenosis [email or web address] 12:46 PM Post ECG NSR [email or web address] 12:46 PM Post Blood Pressure 125/86 [email or web address] 12:47 PM 12:46 Post Pulses Bilateral DP & PT 1+ [email or web address] 12:47 PM Information taught Cardiac Cath and PCI [email or web address] 12:47 PM Education needs Procedure, Plan of Care, and Disease Process [email or web address] 12:47 PM Learning barriers :Sedated [email or web address] 12:47 PM Education Methods Verbal [email or web address] 12:47 PM Education evaluation Needs further instruction [email or web address] 12:48 PM Site status No bleeding/hematoma - Rt Groin as reported by Princess Cope RT (R) at 12:47 [email or web address] 12:48 PM Opsite applied [email or web address] 12:48 PM Family placed in consult room. [email or web address] 12:48 PM Delay to floor No [email or web address] 12:48 PM Complications: None [email or web address] 12:48 PM Fluoro Time: 4.2 [email or web address] 12:48 PM Isovue 370 - 200ml contrast 142 ml given by Krya Bruner MD, [facility]. [email or web address] 12:48 PM Radiation Dose 340.70 mGy [email or web address] 12:53 PM Patient out of room: 12:53 [email or web address] 12:54 PM Report given to vanessa LOZANO Pt taken to ICU Room #12. 12:54 [email or web address] Complications Complication None None Hemodynamics Pressures Site Systolic/A Wave Diastolic/V Wave Mean AO 157 76 117 AO 150 99 122 LV 102 12 13 LV 104 19 26 AO 99 30 77 Post Procedure Information Blood Pressure: 125/86 mmHg Rhythm: NSR Post procedural instructions were given Site Checks Time Location Status Staff Sheath In? Note 12:47 PM Rt Groin No bleeding/hematoma Princess Cope RT (R) Pulses Time Site Pre-Procedure Post-Procedure Note 08/27/2017 12:21:00 PM Bilateral DP & PT 1+ 12:46:00 PM Bilateral DP & PT 1+ Updated by Jim Barth RT (R) on 08/27/2017 12:55:32 PM Jim Barth RT electronically signed on 08/27/2017 12:56:11 PM with status of Final
[2017-08-27] MEDS: Aspirin Enteric Coated 81 MG Tablet PO SCH (13:41)
--- NOTE | 2017-08-27 14:14 | Electrocardiograph Report ---
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
--- NOTE | 2017-08-27 14:15 | Electrocardiograph Report ---
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
--- NOTE | 2017-08-27 20:44 | Electrocardiograph Report ---
[address] [address] Test Date: 2017-08-27 Pat Name: Tom Callaway Department: 109 Room: 12 Gender: M Co Founder And Cto: CCCDF : 1960 Requested By: Kyra Bruner Order Number: [id number] Reading MD: Sha Xiong MD Measurements Intervals [place] Rate: 78 P: 56 DC: 152 QRS: 81 QRSD: 98 T: 70 QT: 353 QTc: 386 Interpretive Statements SINUS RHYTHM Electronically Signed On 08-27-2017 20:42:58 EST by Sha Xiong MD
[2017-08-28 03:09] LABS: Basophils # 0.1 K/mcL (0.0-0.2); Basophils % 0.6 %; Eosinophils # 0.6 K/mcL (0.0-0.6); Hematocrit 41.5 % (37.5-50.1); Immature Granulocytes % 0.4 % (0-4); Lymphocytes # 4.6 K/mcL (0.6-4.6); Lymphocytes % 38.1 %; Mean Corpuscular HGB Conc 33.7 g/dL (31.6-35.5); Mean Corpuscular Hemoglobin 30.4 pg (28.0-33.3); Mean Corpuscular Volume 90.2 fL (83.0-100.0); Neutrophils # 5.7 K/mcL (1.6-8.9); Platelet Count 209 K/mcL (140-400); Red Cell Distribution Width 12.9 % (11.5-14.5); Segmented Neutrophils % 47.9 %
[2017-08-28 03:15] LABS: INR 1.1
[2017-08-28 03:18] LABS: Activated Partial Thrombo Time 28.8 Seconds (26.0-36.0)
[2017-08-28 03:27] LABS: Alanine Aminotransferase 48 Units/L (0-55); Albumin/Globulin Ratio 1.1 (1.1-2.2); Alkaline Phosphatase 67 Units/L (38-126); Aspartate Amino Transferase 119 Units/L (5-34); BUN/Creatinine Ratio 19 (6-26); Bilirubin,Total 0.3 mg/dL (0.2-1.2); Blood Urea Nitrogen 15 mg/dL (8-26); Carbon Dioxide 21 mEq/L (19-29); Chloride 111 mEq/L (98-109); Chol/HDL Ratio 4.7 (0-4.9); Cholesterol 150 mg/dL (< 200); Globulin 2.6 g/dL (2.4-3.5); Glucose 107 mg/dL (70-99); HDL Cholesterol 32 mg/dL (40-59); LDL Cholesterol,Calculated 92 mg/dL (0-99); Osmolality,Calculated 287 (280-300); Phosphorous 3.3 mg/dL (2.3-4.7); Potassium 3.9 mEq/L (3.5-4.5); Sodium 138 mEq/L (136-145); Triglycerides 131 mg/dL (< 150); eGFR For African Americans > 60 (> 60); eGFR For Non-African Americans > 60 (> 60)
[2017-08-28 03:33] LABS: Albumin 2.8 g/dL (3.5-5.0); Total Protein 5.4 g/dL (6.0-8.3)
[2017-08-28] MEDS: Aspirin Enteric Coated 81 MG Tablet PO SCH (08:23)
--- NOTE | 2017-08-28 09:47 | Internal Med Progress Note ---
Date of Encounter: 08/28/17 Time of Encounter: 09:06 - Assessment and plan (1) NSTEMI (non-ST elevated myocardial infarction) Current Visit: Yes Status: Acute Assessment and plan: s/p LHC: found to have single vessel disease, Acute NH due to thrombocytic occlusion of proximal LAD, s/p DIANE placement pt started on ASA, Plavix, BB, Statin no discomfort reported at this time Repeat BP within acceptable range cardiology on board and consultation appreciated (2) SVT (supraventricular tachycardia) Current Visit: Yes Status: Resolved Assessment and plan: currently in NSR rate controlled with BB, will continue 2D echo reported LVEF of 45-50% with mild LV diastolic dysfunction (3) DVT prophylaxis Current Visit: Yes Status: Acute Assessment and plan: Heparin SQ - Subjective Interval history: Patient is a 57y/o male admitted for NSTEMI, underwent LHC found to have occlusion of LAD, s/p DIANE placement. Patient seen and examined at bedside. Resting in bed and reports of feeling significantly better compared to previous day. Denies any chest pain, sob, or any discomfort at this time. No overnight issues reported. Repeat BP: 110/80 - Constitutional Vitals: Temp Pulse Resp BP Pulse Ox 97.8 F 80 14 140/110 97 08/28/17 04:46 08/28/17 08:00 08/28/17 08:00 08/28/17 08:00 08/28/17 08:00 General appearance: Present: A&O X 3, pleasant, no acute distress, answers questions appropriately - Head Head exam: Present: atraumatic, normocephalic - Eye Eye exam: Present: conjuntiva pink, sclera anicteric - Respiratory Respiratory exam: Present: CTAB. Absent: respiratory distress, wheezes - Cardiovascular Cardiovascular exam: Present: RRR, +S1, +S2. Absent: diastolic murmur, gallop, rubs, systolic murmur - GI/Abdominal GI/Abdominal exam: Present: normal bowel sounds, soft, no peritoneal signs. Absent: distended, tenderness - Extremities Exam Extremities exam: Present: warm, radial pulses palpable and symmetrical. Absent : calf tenderness, pedal edema - Neurological Exam Neurological exam: Present: alert, oriented X3 - Psychiatric Psychiatric exam: Present: normal affect, normal mood Internal Medicine: Result - Labs CBC & Chem 7: 08/28/17 03:03 08/28/17 03:03 Labs: Short CBC 08/28/17 Range/Units 03:03 WBC 11.9 H (4.3-11.1) K/mcL Hgb 14.0 D (12.9-16.9) g/dL Hct 41.5 (37.5-50.1) % Plt Count 209 (140-400) K/mcL Neutrophils # 5.7 (1.6-8.9) K/mcL BMP 08/28/17 03:03 Sodium 138 Potassium 3.9 Chloride 111 H Carbon Dioxide 21 BUN 15 Creatinine 0.78 Glucose 107 H Calcium 8.0 L D Cardiac Enzymes 08/27/17 08/27/17 08/28/17 Range/Units 15:34 21:00 03:03 Troponin I 29.75 H* > 50.00 H* 31.81 H* (0-0.03) ng/mL Liver Function 08/28/17 Range/Units 03:03 Total Bilirubin 0.3 (0.2-1.2) mg/dL AST 119 H (5-34) Units/L ALT 48 (0-55) Units/L Alkaline Phosphatase 67 (38-126) Units/L Albumin 2.8 L D (3.5-5.0) g/dL - ABG Interpretation ABG results: PT/INR, D-dimer PT 12.0 Seconds (9.4-12.1) 08/28/17 03:03 Consult Discharge Plan - Plan Referrals: Roberto Davis MD [Primary Care Provider] -
--- NOTE | 2017-08-28 09:49 | Cardiology Progress Note ---
Date of Encounter: 08/28/17 Time of Encounter: 09:30 Assessment and Plan (1) NSTEMI (non-ST elevated myocardial infarction) Current Visit: Yes Status: Acute Per cardiology: -NSTEMI on presentatation. -S/p LHC yesterday with DIANE to LAD. Has remaining mild CAD. -ON asa, statin, beta halley, lisinopril, and plavix. -Educated on importance of dual anti-platelet therapy uninterrupted for at least one year. -RIght groin access site without hematoma or ecchymosis. -Denies chest pain. -Will continue to monitor. (2) Ischemic cardiomyopathy Current Visit: Yes Status: Acute Per cardiology: -Admitted as NSTEMI. -TTE with LVEF 45-50%, mild diastolic dysfunction, apical septal and mid anterior septal jimenez hypokinetic. ALl other visualized jimenez with normal motion. -On beta halley and tori inhibitor. -Euvolmeic on exam. -Will continue to monitor. (3) Chest pain Current Visit: Yes Status: Resolved Per cardiology: -Chest pain now resolved after coronary intervention yesterday. -Will continue to monitor. Qualifiers: Chest pain type: other chest pain Qualified Code(s): R07.89 - Other chest pain; R07.8 - Other chest pain (4) SVT (supraventricular tachycardia) Current Visit: Yes Status: Resolved Per cardiology: -SVT has resolved since coronary intervention. -No evidenc of SVT on telemetry. -Will continue to monitor. Discussion w patient/family: The assessment and plan as outlined above was discussed with the patient who expressed understanding and agreement. All questions were answered. Thank you for involving us in the care of your patient. Please call with any questions. Discussed and reviewed with . Subjective Principal diagnosis: ACS Interval history: Patient states he feels well today. Denies chest pain. Denies issues using right leg. Objective Vital Signs, Last 4 Hours Pulse Resp BP Pulse Ox 08/28/17 08:00 80 14 140/110 97 08/28/17 06:00 66 16 148/93 96 General: Conversant, No Apparent Distress HEENT: Atraumatic, Normocephaly, Mucus Membranes Moist Neck: No JVD, Normal carotid pulses Cardiac: Reg Rate and Rhythm, Normal S1 and S2, No Murmur Lungs: Normal Breath Sounds, No Wheeze, Rales, Rhonchi Neuro: Alert and responsive, No focal deficits noted Abdomen: Soft, Non-Tender Skin: No rashes noted on visualized skin, Other (Right groin access site without hematoma or ecchymosis. ) Musculoskeletal: No Chest Wall Tenderness Extremities: No Clubbing, No Cyanosis, No Edema, Normal Pulses Results 08/28/17 03:03 08/28/17 03:03 Lab Results Impressions Chest X-Ray 08/27/17 08:55 IMPRESSION: No acute process. D/ / Mati Espinoza MD / Mati Espinoza MD Interpreting Provider: Mati Espinoza MD Chest CTA 08/27/17 09:38 IMPRESSION: No evidence of pulmonary embolism or acute pulmonary abnormality. D/ / Fredis Salguero MD / Fredis Salguero MD Interpreting Provider: Fredis Salguero MD Echocardiogram 08/27/17 10:34 Impressions: LVEF 45-50%. Normal LV chamber size and wall thickness. Mild segmental left ventricular systolic dysfunction. Mild left ventricular diastolic dysfunction. Normal right ventricular structure and function. No evidence of pulmonary hypertension. No significant valvular dysfunction. Left Ventricular Wall Motion: Rest Echo Findings The apical septal and mid anterior septal jimenez were hypokinetic. All other wall segments showed normal motion. Findings: Study Quality * Technically adequate exam. ECG Findings * Normal sinus rhythm. Left Ventricle * LVEF 45-50%. * Normal LV chamber size and wall thickness. * Mild segmental left ventricular systolic dysfunction. * Mild left ventricular diastolic dysfunction. Right Ventricle * Normal right ventricular structure and function. Left Atrium * Normal left atrial size. Right Atrium * Normal right atrial size. Interatrial Septum * No evidence of PFO by color Doppler. Aortic Valve * Aortic valve not well visualized. * No aortic stenosis. * No aortic regurgitation. Mitral Valve * Normal mitral valve structure and function. * No mitral regurgitation. * No mitral stenosis. Tricuspid Valve * Normal tricuspid valve structure and function. * Trace tricuspid regurgitation. * No evidence of pulmonary hypertension. Pulmonic Valve * Pulmonic valve is not well visualized. Aorta * Normally sized aortic root. Pericardium * The pericardium appears normal. IVC * Normal IVC dimensions and inspiratory collapse. Pulmonary Artery * Normal visualized portions of the main pulmonary artery. Active Medications Aspirin (Aspirin Ec) 81 mg PO DAILY [facility] Stop: 02/26/18 10:46 Last Admin: 08/28/17 08:23 Dose: 81 mg Atorvastatin Calcium (Lipitor) 80 mg PO HS [facility] Stop: 02/26/18 21:01 Last Admin: 08/27/17 20:02 Dose: 80 mg Carvedilol (Coreg) 6.25 mg PO BIDWM [facility] PRN Reason: Protocol Stop: 02/26/18 17:01 Last Admin: 08/28/17 08:23 Dose: 6.25 mg Clopidogrel Bisulfate (Plavix) 75 mg PO DAILY [facility] Stop: 02/27/18 09:01 Last Admin: 08/28/17 08:23 Dose: 75 mg Lisinopril (Zestril) 2.5 mg PO DAILY [facility] PRN Reason: Protocol Stop: 02/27/18 09:01 Last Admin: 08/28/17 08:23 Dose: 2.5 mg Morphine Sulfate (Morphine Sulfate) 2 mg IVP Q4HR PRN PRN Reason: Severe Pain (7-10) Stop: 02/26/18 10:30 Naloxone HCl (Narcan) 0.4 mg IVP Q2MIN PRN PRN Reason: Opioid Reversal Stop: 02/26/18 10:30 Nitroglycerin (Nitroglycerin) 0.4 mg SL Q5MIN PRN PRN Reason: Chest Pain Stop: 02/26/18 13:00 Laboratory Tests 08/27/17 08/27/17 08/27/17 08:59 09:49 15:34 WBC Hgb Creatinine Troponin I 0.02 0.07 H* 29.75 H* 08/27/17 08/28/17 08/28/17 21:00 03:03 03:03 WBC 11.9 H Hgb 14.0 D Creatinine Troponin I > 50.00 H* 31.81 H* 08/28/17 03:03 WBC Hgb Creatinine 0.78 Troponin I - Imaging and Cardiology Chest Xray: report reviewed Echo: report reviewed Cardiac cath: report reviewed - EKG Interpretation EKG results cardiology: other (Telemetry reviewed with average HR previous 12 hours noted to be 72, sinus rhythm. PVCs and PACS noted. One 6 beat run of non- sustained ventricular tachycardia noted.) Consult Discharge Plan - Plan Referrals: Roberto Davis MD [Primary Care Provider] -
[2017-08-28] MEDS: *HR* Heparin 5,000 UNIT/ML VIAL SQ SCH (17:20)
--- NOTE | 2017-08-28 20:01 | Electrocardiograph Report ---
[address] [place], [place] [address] Test Date: 2017-08-27 Pat Name: Tom Callaway Department: [id number] Room: 2N03 Gender: M Snap Shearer: MSC : 1960 Requested By: Angelica Palma Order Number: [id number] Reading MD: Sha Xiong MD Measurements Intervals [place] Rate: 155 P: MI: 0 QRS: 68 QRSD: 83 T: 47 QT: 277 QTc: 364 Interpretive Statements SUPRAVENTRICULAR TACHYCARDIA ST ELEVATION, CONSIDER ANTEROSEPTAL INJURY ACUTE CA Electronically Signed On 08-28-2017 19:59:32 EST by Sha Xiong MD
[2017-08-29 03:22] LABS: Basophils # 0.1 K/mcL (0.0-0.2); Eosinophils # 0.8 K/mcL (0.0-0.6); Eosinophils % 6.1 %; Hematocrit 42.4 % (37.5-50.1); Immature Granulocytes % 0.5 % (0-4); Lymphocytes # 5.1 K/mcL (0.6-4.6); Mean Corpuscular Hemoglobin 29.5 pg (28.0-33.3); Mean Corpuscular Volume 89.3 fL (83.0-100.0); Mean Platelet Volume 11.6 fL (9.4-12.4); Monocytes # 0.9 K/mcL (0.0-1.3); Monocytes % 6.9 %; Neutrophils # 6.1 K/mcL (1.6-8.9); Platelet Count 215 K/mcL (140-400); Red Blood Count 4.75 M/mcL (4.19-5.50); Red Cell Distribution Width 12.9 % (11.5-14.5); Segmented Neutrophils % 46.5 %
[2017-08-29 03:38] LABS: BUN/Creatinine Ratio 16 (6-26); Blood Urea Nitrogen 12 mg/dL (8-26); Calcium 8.7 mg/dL (8.6-10.8); Carbon Dioxide 23 mEq/L (19-29); Chloride 108 mEq/L (98-109); Glucose 95 mg/dL (70-99); Magnesium 2.1 mg/dL (1.6-2.6); Osmolality,Calculated 282 (280-300); Phosphorous 2.9 mg/dL (2.3-4.7); Sodium 136 mEq/L (136-145); eGFR For African Americans > 60 (> 60); eGFR For Non-African Americans > 60 (> 60)
[2017-08-29] MEDS: *HR* Heparin 5,000 UNIT/ML VIAL SQ SCH (06:20)
[2017-08-29 07:48] VITALS: BP 108/83
[2017-08-29] MEDS: Aspirin Enteric Coated 81 MG Tablet PO SCH (08:22)
--- NOTE | 2017-08-29 08:56 | Cardiology Progress Note ---
Date of Encounter: 08/29/17 Time of Encounter: 07:45 Assessment and Plan (1) NSTEMI (non-ST elevated myocardial infarction) Current Visit: Yes Status: Acute Per cardiology: -NSTEMI on presentatation. -S/p C with DIANE to LAD. Has remaining mild CAD. -ON asa, statin, beta halley, lisinopril, and plavix. -Educated on importance of dual anti-platelet therapy uninterrupted for at least one year. -RIght groin access site without hematoma. small area of ecchymosis noted. -Right groin access site management education given and explained to patient. -Denies chest pain. - Cardiology will sign off and will follow in outpatient setting. Follow up set. (2) Ischemic cardiomyopathy Current Visit: Yes Status: Acute Per cardiology: -Admitted as NSTEMI. -TTE with LVEF 45-50%, mild diastolic dysfunction, apical septal and mid anterior septal jimenez hypokinetic. ALl other visualized jimenez with normal motion. -On beta halley and tori inhibitor. -Euvolmeic on exam. -CHF education explained to patient. -Will continue to monitor in outpatient setting. (3) Chest pain Current Visit: Yes Status: Resolved Per cardiology: -Chest pain now resolved after coronary intervention yesterday. -Will continue to monitor in outpatient setting. Qualifiers: Chest pain type: other chest pain Qualified Code(s): R07.89 - Other chest pain; R07.8 - Other chest pain (4) SVT (supraventricular tachycardia) Current Visit: Yes Status: Resolved Per cardiology: -SVT has resolved since coronary intervention. -No evidenc of SVT on telemetry. -Will continue to monitor in outpatient setting. Discussion w patient/family: The assessment and plan as outlined above was discussed with the patient who expressed understanding and agreement. All questions were answered. Thank you for involving us in the care of your patient. Please call with any questions. Discussed and reviewed with . Subjective Principal diagnosis: ACS Interval history: Patient states he feels well today. Denies chest pain. Denies issues using right leg. Denies issues walking. Objective Vital Signs, Last 4 Hours Temp Pulse Resp BP Pulse Ox 08/29/17 07:43 98.1 F 73 16 108/83 97 General: Conversant, No Apparent Distress HEENT: Atraumatic, Normocephaly, Mucus Membranes Moist Neck: No JVD, Normal carotid pulses Cardiac: Reg Rate and Rhythm, Normal S1 and S2, No Murmur Lungs: Normal Breath Sounds, No Wheeze, Rales, Rhonchi Neuro: Alert and responsive, No focal deficits noted Abdomen: Soft, Non-Tender Skin: No rashes noted on visualized skin, Other (Right groin access site without hematoma. Small area of ecchymosis noted. ) Musculoskeletal: No Chest Wall Tenderness Extremities: No Clubbing, No Cyanosis, No Edema, Normal Pulses Results 08/29/17 02:35 08/29/17 02:35 Lab Results Active Medications Aspirin (Aspirin Ec) 81 mg PO DAILY COUNTS INCLUDE 234 BEDS AT [facility] Stop: 02/26/18 10:46 Last Admin: 08/29/17 08:22 Dose: 81 mg Atorvastatin Calcium (Lipitor) 80 mg PO HS COUNTS INCLUDE 234 BEDS AT THE [facility] Stop: 02/26/18 21:01 Last Admin: 08/28/17 22:08 Dose: 80 mg Carvedilol (Coreg) 6.25 mg PO BIDWM COUNTS INCLUDE 234 BEDS AT THE [facility] PRN Reason: Protocol Stop: 02/26/18 17:01 Last Admin: 08/29/17 08:22 Dose: 6.25 mg Clopidogrel Bisulfate (Plavix) 75 mg PO DAILY COUNTS INCLUDE 234 BEDS AT THE [facility] Stop: 02/27/18 09:01 Last Admin: 08/29/17 08:22 Dose: 75 mg Heparin Sodium (Porcine) (Heparin) 5,000 unit SQ Q12HCO COUNTS INCLUDE 234 BEDS AT THE [facility] Stop: 02/27/18 18:01 Last Admin: 08/29/17 06:20 Dose: 5,000 unit Lisinopril (Zestril) 5 mg PO DAILY COUNTS INCLUDE 234 BEDS AT THE [facility] PRN Reason: Protocol Stop: 02/28/18 09:01 Last Admin: 08/29/17 08:22 Dose: 5 mg Morphine Sulfate (Morphine Sulfate) 2 mg IVP Q4HR PRN PRN Reason: Severe Pain (7-10) Stop: 02/26/18 10:30 Naloxone HCl (Narcan) 0.4 mg IVP Q2MIN PRN PRN Reason: Opioid Reversal Stop: 02/26/18 10:30 Nitroglycerin (Nitroglycerin) 0.4 mg SL Q5MIN PRN PRN Reason: Chest Pain Stop: 02/26/18 13:00 Laboratory Tests 08/29/17 02:35 Creatinine 0.77 - Imaging and Cardiology Chest Xray: report reviewed Echo: report reviewed Cardiac cath: report reviewed - EKG Interpretation EKG results cardiology: other (Telemetry reviewed with average HR previous 12 hours noted to be 69, sinus rhythm. PVCs and PACs noted.) Consult Discharge Plan - Plan Referrals: Roberto Davis MD [Primary Care Provider] -
--- NOTE | 2017-08-29 09:35 | Discharge Summary ---
<Tom Fabian - Last Filed: 08/29/17 14:03> Date of Encounter: 08/29/17 Time of Encounter: 09:33 - Discharge Diagnosis (1) NSTEMI (non-ST elevated myocardial infarction) Priority: Primary Status: Acute (2) SVT (supraventricular tachycardia) Priority: Secondary Status: Resolved (3) Ischemic cardiomyopathy Priority: Secondary Status: Acute - Discharge Medications Prescriptions: Aspirin Enteric Coated [Aspirin EC] 81 mg PO DAILY #30 tablet. Atorvastatin [Lipitor] 80 mg PO HS #30 tablet Carvedilol [Coreg] 6.25 mg PO BIDWM #60 tablet Clopidogrel [Plavix] 75 mg PO DAILY #30 tablet Lisinopril [Zestril] 5 mg PO DAILY #30 tablet Home Medications: Aspirin Enteric Coated [Aspirin EC] 81 mg PO DAILY #30 tablet. 08/29/17 [Rx] Atorvastatin [Lipitor] 80 mg PO HS #30 tablet 08/29/17 [Rx] Carvedilol [Coreg] 6.25 mg PO BIDWM #60 tablet 08/29/17 [Rx] Clopidogrel [Plavix] 75 mg PO DAILY #30 tablet 08/29/17 [Rx] Lisinopril [Zestril] 5 mg PO DAILY #30 tablet 08/29/17 [Rx] Allergies/Adverse Reactions: 3 Allergy/AdvReac Type Severity Reaction Status Date / Time No Known Allergies Allergy Verified 08/27/17 10:19 Procedures/tests Complete & Pending: Procedures Performed prior 72 hours Category Date Time Status ECG 12 lead ECG [ECG] Routine Y 08/27/17 11:18 Completed Date of admission: 08/27/17 14:20 Primary care physician: Roberto Davis MD Discharging clinician: Tom Fabian Anticipated date of discharge: 08/29/17 - Patient Status Disposition: Home, Self-Care Condition: Good Functional capacity at discharge: independent ambulation Overall status at discharge: patient is progressing back to baseline - Discharge Instructions Instructions: Lisinopril (By mouth), Aspirin (By mouth), Atorvastatin (By mouth ), Carvedilol (By mouth), Clopidogrel (By mouth), Myocardial Infarction (DC) Follow Up With: Carolynn Matos, STEERSMAN [Advanced Practice Nurse] - (CARDIOLOGY OFFICE WILL CALL YOU WITH FOLLOW UP APPOINTMENT) Roberto Davis MD [Primary Care Provider] - (REQUEST SENT 08/29/17. OFFICE WILL CALL YOU WITH FOLLOW UP APPOINTMENT) Forms: ED Satisfaction Letter Additional Instructions: RISK FACTORS: STOP SMOKING: If you smoke, STOP. Smoking or tobacco use significantly increases your risk of heart disease because nicotine causes the arteries to narrow or constrict. It also causes fats to stick to the artery. Your chances of having a heart attack are greatly increased if you continue to smoke. For more information, call the education line for smoking cessation 3-959-WEJKDUA EAT A LOW FAT/CHOLESTEROL/SODIUM DIET: This diet may help reduce your chances of having a heart attack. LIFTING: Avoid lifting anything more than 10 pounds for 5-7 days Prior to straining, laughing, sneezing and/or coughing, apply manual pressure directly over insertion site. ACTIVITY: You may walk or climb stairs as tolerated You can resume sexual activity as tolerated In general, you are encouraged to engage in a minimum of 30 minutes or more of moderate intensity physical activity, such as brisk walking, daily or at least 3 -4 times weekly BATHING Do not submerge the site into water (bath tub, hot tub, swimming pool) for 1 week. This can be a source for infection into the blood stream. You may shower after 24 hours SITE CARE: After 24 hours, you may remove the dressing and leave the site open to air. Keep the site clean and dry. Clean gently and pat dry. You can expect bruising and tenderness that gradually resolve within a week or two. Return to work as instructed per your physician Resume driving as instructed per physician Keep all scheduled follow up appointments Resume medications as instructed IMPORTANT: If prescribed a Platelet Aggregation Inhibitor such as, Plavix, Brilinta or Effient: Duration of therapy is minimum one year These medications are often used in combination with Aspirin in prevention of future heart attacks Never discontinue unless consult with your V[employer] Worker STROKE (CVA) Risk factors for a stroke are: Age, cigarette smoking, diabetes, excessive alcohol consumption, family history, high blood pressure, overweight, physical inactivity, prior stroke, heart attack, diagnosis of carotid artery stenosis or other artery disease. Warning signs: Sudden numbness or weakness of the face, arm or leg; especially on one side of the body, sudden confusion, trouble speaking or understanding, sudden trouble seeing in one or both eyes, sudden trouble walking, dizziness, loss of balance or coordination, sudden severe headache with no cause. Call 911 or go to the Emergency Room. CONGESTIVE HEART FAILURE: If you have been diagnosed with Congestive Heart Failure (CHF) and your symptoms return, make an appointment with your physician Weigh yourself daily. Notify your physician if you have a weight gain of two or more pounds in one day or five or more pounds in one week. If you experience any difficulty breathing, please call 911 BLEEDING: Although the risk of bleeding is minimal, it can happen. If you have any bleeding from the site, apply firm pressure above the puncture site for 10-15 minutes. If the bleeding does not stop, continue manual pressure and call 911 Contact your physician if: You develop a fever greater than 101 degrees Fahrenheit Your site becomes reddened or has any drainage You have an increase in pain or burning at the site or if a large knot forms at the site. If you experience chest pain, shortness of breath, dizziness, or extreme tiredness, stop the activity and rest. Please notify your physicians office if you experience any of these symptoms and they are not relieved by rest please call 911!Please take aspirin, clopidogrel, lisinopril, atorvastatin daily. It is extremely important that he take aspirin and clopidogrel every day without missing a dose. Please take carvedilol twice a day. If your chest pain worsens or have any new or worsening symptoms please return to the emergency department. Please follow-up with your primary care physician within one week. Please follow up with cardiology as scheduled. - Diet and Activity Activity: increase activity as tolerated Diet: low salt diet Interval History: Patient seen and examined at bedside. Patient states that he feels much better today. He denies any chest pain, shortness of breath, palpitations. Hospital course: Mr. Callaway is a 57 year old male with history of back pain presented to the emergency department with chest pain. Upon arrival patient was found to have an elevated troponin which continued to trend up shortly after admission. Cardiology was consulted and patient underwent left heart catheterization and patient was found to have a total occlusion of the proximal LAD which was treated with a drug-eluting stent. EF determined on heart catheterization was 45%. Post procedure the patient recovered nicely and had no other events. She will be noted that the patient had an episode of SVT in the emergency department that responded well to IV beta blockers. He had no other events during his hospital stay. Patient will be discharged home on dual antiplatelet therapy, beta halley, DAINA inhibitor. Patient will be discharged home in stable condition. - Time Spent with Patient Total time spent providing and/or coordinating discharge services: - Constitutional Vitals: Temp Pulse Resp BP Pulse Ox 98.1 F 73 16 108/83 97 08/29/17 07:43 08/29/17 07:43 08/29/17 07:43 08/29/17 07:43 08/29/17 07:43 General appearance: Present: A&O X 3, pleasant, no acute distress, answers questions appropriately - Respiratory Respiratory exam: Present: CTAB. Absent: rales, rhonchi, wheezes - Cardiovascular Cardiovascular exam: Present: RRR. Absent: gallop, rubs, systolic murmur - GI/Abdominal GI/Abdominal exam: Present: normal bowel sounds. Absent: distended, soft, tenderness - Extremities Exam Extremities exam: Present: warm. Absent: pedal edema, tenderness - Neurological Exam Neurological exam: Present: alert, CN II-XII intact, oriented X3, no focal deficits <Zev Lambert - Last Filed: 08/29/17 14:35> Date of Encounter: 08/29/17 Procedures/tests Complete & Pending: Procedures Performed prior 72 hours Category Date Time Status ECG 12 lead ECG [ECG] Routine Y 08/27/17 11:18 Completed Date of admission: 08/27/17 14:20 Primary care physician: Roberto Davis MD Hospital course: Mr. Callaway is a 57 year old male - Time Spent with Patient Total time spent providing and/or coordinating discharge services: - Constitutional Vitals: Temp Pulse Resp BP Pulse Ox 98.1 F 73 16 108/83 97 08/29/17 07:43 08/29/17 07:43 08/29/17 07:43 08/29/17 07:43 08/29/17 07:43 - Attending Attestation I independently interviewed and examined his pt. I agree with the findings, assessment and plan of Dr Fabian, Resident physician. PT s/p DIANE. Doing well. Rx as indicated above. Follow up with cardiology. Condition on dc: Stable.
== END 2017-08-29 10:15 | disposition home or self-care (01) | DRG 247 ==
LOC: EMEROO 08:44 → 3BNU 08:44 → ICNU 11:48 → SUATTDRO 14:20 → 2NNU 08-28 17:42
PROVIDERS: ADMIT Registered Nurse; ATTEND Internal Medicine